=== PATIENT | female | born 1940 | race Caucasian/White ===

== ENCOUNTER 2020-12-15 14:00 | Outpatient (RCR) | payer MEDICARE, MEDICAID, SELFPAY ==
--- NOTE | 2020-12-15 14:52 | HP.PTEVAL_ITS ---
Patient's Visit Information SHANNON YU is a 80 year old F referred to Physical Therapy by Brielle Blake MD with a diagnosis of NEUROPATHY DUE TO MEDICAL CONDITION. Date of Evaluation: 12/15/20 Physical Therapist: Alexandro Rosa PT, Cert MDT, [facility] - Visit Plan Frequency: 1 visit Plan: This patient will benefit from lift due weakness in legs ,severe neuropathy from comorbities causing difficulty to elevate from chair thus will benefit to maximize level of function [place] in home. - Subjective This 80 y/o female presents to physical therapy for lift chair evaluation. Patient seen DR and recommended have patient evaluation for lift chair . Patient currently has lift but its not appropriately. Patient has difficulty getting up from chair . Patient has severe neuropathy in feet and most recently had ulcer on toe due to unable to feel feet. Patient had infection .Patient is unsteady with gait and has to use cane for balance. Patient lives alone but has [employer] aide 2x week to help with cleaning. Patient has walk in shower with seat and grab rails. Patient does minimal cooking. Patient has difficulty with extra time to complete IADL'S. Patient will benefit from lift chair. SOCAIL : lives alone - Objective POSTURE: mild forward posture. GAIT: ambulates with cane unsteady reciprocal pattern slow keith. NEURO: c/o paresthesia/tingling lower legs light touch absent. SYMMTRIES: align. BALANCE: fair+ with cane. MMT: quads/hams 4-/5 ,hip flexion /abduction 3+/5 ,ankle 4/5. AROM: KNEE FLEXION 5 -125 degrees, hip flexion 100 degrees, hip abduction 30 degrees. TRANFERS : SIT-STAND DIFFICULTY - Goals Goal 1:: Patient will benefit from Lift Chair - Rehabilitation Potential Physical Therapy Diagnosis: This patient will benefit from lift due weakness in legs ,severe neuropathy from comorbities causing difficulty to elevate from chair thus will benefit to maximize level of function [place] in home. Rehabilitation Potential: Good - Anticipated Interventions Patient/Client Instruction: Educate patient on: Condition For the Purpose of:: Other Other: LIFT CHAIR Thank you for the opportunity to evaluate your patient. For Medicare and Medicare HMO plans, please review the plan of care and approve it. It will need to be FAXED BACK to us at [phone] for Medicare purposes. For Medicare only, by signing this I certify the plan of care. Please let me know if there are questions or concerns regarding this plan of care. Physician Signature: Date:
== END 2020-12-15 19:00 | disposition home or self-care (01) ==
LOC: PT 14:00
DX: E11.42 Type 2 diabetes mellitus with diabetic polyneuropathy (principal)
CPT/HCPCS: 97162